=== PATIENT | female | born 1980 | race Two or more races ===

== ENCOUNTER 2019-03-26 06:35 | Emergency (ER) | payer MEDICARE, MEDICAID ==
[~2019-03-26] VITALS: Ht 154.9 cm; Wt 59.0 kg
[2019-03-26] MEDS ORDERED: GASTROGRAFIN 30 ML SOL ONE (08:24)
[2019-03-26 08:37] VITALS: BP 100/70
== END 2019-03-26 09:58 | disposition home or self-care (01) ==
LOC: ER 06:35 → EDBD 06:35 → ER 09:58
DX: G80.9 Cerebral palsy, unspecified (principal); G40.909 Epilepsy, unspecified, not intractable, without status epilepticus; Z43.1 Encounter for attention to gastrostomy; Z88.2 Allergy status to sulfonamides
CPT/HCPCS: 43762; 74018; 99284; Q9963

== ENCOUNTER → 2019-09-13 | Emergency (ER) | payer MEDICARE, MEDICAID ==
[~2019-09-13] VITALS: Ht 152.4 cm; Wt 54.4 kg
[~2019-09-13] MED LIST: GASTROGRAFIN 30 ML SOL ONE; LIDOCAINE 1% HCL (LOCAL ANESTH.) INJ 20ML MDV ID ONE
[2019-09-14 02:31] VITALS: BP 105/82
== END | disposition home or self-care (01) ==
LOC: EDUNIT# 23:41 → EDBD 23:48 → ER 23:53
DX: G80.9 Cerebral palsy, unspecified (principal); Z43.1 Encounter for attention to gastrostomy; Z88.2 Allergy status to sulfonamides
CPT/HCPCS: 43762